=== PATIENT | male | born 1960 | race Caucasian/White ===

== ENCOUNTER 2019-09-24 12:42 | Day surgery (SDC) | payer OTHER ==
[~2019-09-24] VITALS: Ht 177.8 cm; Wt 111.6 kg
[~2019-09-24 12:42] MED LIST: CLARITIN10 MG PO; HYDROCHLOROTHIA25 MG PO; LOSARTAN POTAS100 MG PO; NORCO 5-325 TA1 EACH PO; OMEPRAZOLE20 MG PO; TYLENOL WITH C1 EACH PO
--- NOTE | 2019-09-24 13:49 | NUR ---
09/24/19 1349 Petra Judd 1342- PT ARRIVES TO PACU ALERT AND ORIENTED. PT REPORTS NO PAIN OR NAUSEA. RESP EVEN AND UNLABORED. OXYGEN SAT MID 90'S ON 3L VIA NC 1349- OXYGEN TITRATED OFF.
--- NOTE | 2019-09-25 13:10 | OR ---
[facility] [address] [place], [place] [address] Signed DATE OF OPERATION: 09/24/2019 SURGEON: Malissa Bonds MD PREOPERATIVE DIAGNOSES: 1. Chronic reflux esophagitis. 2. 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 POSTOPERATIVE DIAGNOSIS: Mild chronic esophagitis. No clear evidence of Donouhe esophagus. PROCEDURE: Esophagogastroduodenoscopy with biopsy. ANESTHESIA: Intravenous sedation, fentanyl 100 mcg, Versed 4 mg. INDICATION: This 59-year-old white man is a patient of Dr. Luna and known to me from the past. He has longstanding gastroesophageal reflux for which he is well managed from a symptom standpoint with PPI medication and Prilosec. He underwent upper endoscopy 4 years ago in 2014 confirming Donohue esophagus without dysplasia. He is not having dysphagia or other symptoms at this time. If he stays on his PPI medication, he has no abdominal or substernal pain. Currently, he is taking Prilosec. He was admitted at this time to undergo surveillance upper endoscopy on the basis of his presumed Donohue esophagus. He understands the risks of bleeding, infection, and perforation, and wished to proceed. FINDINGS: He did not have obvious Donohue esophagus on evaluation. The Z-line was well demonstrated. He did have mild chronic esophagitis, certainly no stricture, but I did not appreciate Donohue epithelium after all. He does have a poor flap valve consistent with hiatal hernia. There was minimal antral gastritis. The duodenum was normal. CLOtest was -15 minutes post procedure. DESCRIPTION OF PROCEDURE: The patient was brought to the endoscopy suite and placed in lateral decubitus position after undergoing topical Hurricaine spray hypopharyngeal anesthesia. He was given intravenous sedation to the point of slurred speech and nystagmus. An Olympus video upper endoscope was passed in the hypopharynx after bite block was placed. Vocal cords appeared normal as did the arytenoid processes. Scope was advanced to the esophagus Electronically Signed By: MALISSA BONDS MD 09/25/19 1310 PATIENT NAME: YULY JOSEPH OPERATIVE REPORT DATE OF : 60 REPORT #: [id number] PHYSICIAN: MALISSA BONDS MD PCP: ROBIN LUNA DO REPORT IS CONFIDENTIAL AND NOT TO BE RELEASED WITHOUT AUTHORIZATION [facility] [address] [place], [place] [address] Signed throughout without problem and throughout its length, it looked quite good overall. Distal portion showed no evidence of Donohue epithelium in only mild esophagitis. The scope was advanced to the stomach, which was insufflated with air. Rugal folds were normal as was the antrum. Scope was passed through the pylorus into the duodenum. Duodenum appeared normal. Biopsies were obtained there. Scope was withdrawn and biopsies taken of the pre-pyloric antrum as there was mild inflammation on close inspection. There is certainly no ulcer. Retroflexed view was undertaken showing a poor flap valve consistent with small hiatal hernia. Scope was withdrawn to the distal esophagus and biopsies taken there and in the mid esophagus and more proximally as well. The scope was removed and the patient was taken to recovery room in good condition. CONCLUDING DIAGNOSIS: Poor flap valve with clinical reflux symptoms. No clear evidence of Donohue esophagus. PLAN: Recommend continued use of PPI medication. We discussed previously the risks and benefits of PPI medication, but in his case, it provides superior symptom control of his reflux and based on endoscopic evaluation and mucosal healing. MD JOYA Castro/JUANCHOL /[id number] cc: Robin Luna DO Copies: ROBIN LUNA DO ~ Electronically Signed By: MALISSA BONDS MD 09/25/19 1310 PATIENT NAME: YULY JOSEPH OPERATIVE REPORT DATE OF : 60 REPORT #: [id number] PHYSICIAN: MALISSA BONDS MD PCP: ROBIN LUNA DO REPORT IS CONFIDENTIAL AND NOT TO BE RELEASED WITHOUT AUTHORIZATION
--- NOTE | 2019-09-28 12:33 | PATH ---
[facility] [address] [place], [place] [address] Signed SPECIMEN(S): A DUODENUM NOS SPECIMEN(S): B ANTRUM/PYLORUS SPECIMEN(S): C LOWER ESOPHAGUS SPECIMEN(S): D MIDDLE ESOPHAGUS SPECIMEN SOURCE: A. DUODENUM NOS B. ANTRUM/PYLORUS C. LOWER ESOPHAGUS D. MIDDLE ESOPHAGUS CLINICAL HISTORY: Pre: GERD, Donohue's esophagus. Post: Hiatal hernia, mild esophagitis. MICROSCOPIC DESCRIPTION: Histologic sections of all submitted blocks are examined by light microscopy. These findings, together with the gross examination, support the pathologic diagnosis. FINAL PATHOLOGIC DIAGNOSIS: A. Duodenum, biopsy: - Duodenal mucosa with no histopathologic abnormality. - Normal villous architecture present. - Negative for dysplasia or malignancy. B. Stomach, antrum, biopsy: - Antral and oxyntic mucosa with no histopathologic abnormality. - No Helicobacter organisms identified on HE stain. - Negative for dysplasia or malignancy. C. Esophagus, lower, biopsy: - Squamous mucosa with no histopathologic abnormality. - Few fragments of surface gastric foveolar glands with no histopathologic abnormality. - Negative for intestinal metaplasia, dysplasia, or malignancy. D. Esophagus, middle, biopsy: - Squamous mucosa with no histopathologic abnormality. - Negative for intestinal metaplasia, dysplasia, or malignancy. NAL:cml:C2NR GROSS DESCRIPTION: A. The specimen is received in formalin filled specimen container labeled "MP, #1". Two butcher biopsies are 0.2 and 0.3 cm and entirely submitted in cassette A1. PATIENT NAME: YULY JOSEPH PATHOLOGY DATE OF : 60 REPORT #: [id number] PHYSICIAN: TIBURCIO DICKEY PCP: FRANCIS LUNA DO REPORT IS CONFIDENTIAL AND NOT TO BE RELEASED WITHOUT AUTHORIZATION [facility] [address] [place], [place] [address] Signed B. The specimen is received in a formalin filled specimen container labeled "MP, #2". Two butcher biopsies are 0.2 and 0.4 cm and entirely submitted in cassette B1. C. The specimen is received in a formalin filled specimen container labeled "MP, #3". Two jeff biopsies are 0.3 and 0.5 cm, marked with eosin and entirely submitted in cassette C1. D. The specimen is received in a formalin filled specimen container labeled "MP, #4". Two jeff biopsies are 0.1 and 0.4 cm, marked with eosin and entirely submitted in cassette D1. GW (under the direct supervision of a pathologist) The Gross Description was prepared using a voice recognition system. The report was reviewed for accuracy; however, sound-alike word errors, addition and/or deletions may occur. If there is any question about this report, please contact Client Services. PERFORMING LABORATORY: The technical component was performed by [facility], [address] [place] [address] (Roving Marker: Lyndsay Corona MD; CLIA# [id number]). [facility], [address] [address] (Roving Marker: Favio Mckeon MD; CLIA# [id number]). Diagnostician: Ina Robles MD Pathologist Electronically Signed 09/28/2019 Copies: ~ PATIENT NAME: YULY JOSEPH PATHOLOGY DATE OF : 60 REPORT #: [id number] PHYSICIAN: TIBURCIO DICKEY PCP: FRANCIS LUNA DO REPORT IS CONFIDENTIAL AND NOT TO BE RELEASED WITHOUT AUTHORIZATION
== END 2019-09-24 14:30 | disposition home or self-care (01) ==
LOC: OPS 12:42 → DS 12:42 → OPS 14:00
PROVIDERS: Surgery
PROC: 0DB78ZX Excision of Stomach, Pylorus, Via Natural or Artificial Opening Endoscopic, Diagnostic (ICD-10-PCS; 2019-09-24)
PROC: 0DB38ZX Excision of Lower Esophagus, Via Natural or Artificial Opening Endoscopic, Diagnostic (ICD-10-PCS; 2019-09-24)
PROC: 0DB28ZX Excision of Middle Esophagus, Via Natural or Artificial Opening Endoscopic, Diagnostic (ICD-10-PCS; 2019-09-24)
PROC: 0DB98ZX Excision of Duodenum, Via Natural or Artificial Opening Endoscopic, Diagnostic (ICD-10-PCS; principal; 2019-09-24 14:00)
DX: K21.0 Gastro-esophageal reflux disease with esophagitis (principal); K29.70 Gastritis, unspecified, without bleeding; I10 Essential (primary) hypertension; E66.01 Morbid (severe) obesity due to excess calories; G47.33 Obstructive sleep apnea (adult) (pediatric); Z68.37 Body mass index [BMI] 37.0-37.9, adult; Z88.5 Allergy status to narcotic agent; Z99.89 Dependence on other enabling machines and devices; Z98.890 Other specified postprocedural states
CPT/HCPCS: G0500; J2250; J3010; J7121

== ENCOUNTER 2023-11-14 13:05 | Day surgery (SDC) | payer OTHER ==
[~2023-11-14] VITALS: Ht 177.8 cm; Wt 111.5 kg
[~2023-11-14 13:05] MED LIST changes: +ACETAMINOPHEN-1 EAC1 PO; +SILDENAFIL20 MG PO
[2023-11-14 13:24] VITALS: BP 151/85
[2023-11-14] MEDS ORDERED: LATANOPROST2.5 ML OPTH (13:30)
--- NOTE | 2023-11-14 15:46 | NUR ---
11/14/23 1546 Sheets,Fide 1537 PT ARRIVED TO PACU ON 3L VIA MASK, PT ASLEEP AND WAKES EASILY. PT ENCOURAGED TO ROLL TO LEFT SIDE AND PASS GAS NEEDED. PLAN OF CARE DISCUSSED AND PT ROLLED TO LEFT SIDE AND EASILY FALLS BACK TO SLEEP. SMALL AMOUNT OF SNORING NOTED.
[2023-11-14 16:19] VITALS: BP 127/90
--- NOTE | 2023-11-15 18:06 | OR ---
[facility] [address] [place], [place] [address] Signed DATE OF OPERATION: 11/14/2023 SURGEON: Malissa Bonds MD PREOPERATIVE DIAGNOSES: 1. History of Donohue esophagus and ongoing reflux (on PPI). 2. Colon screening. POSTOPERATIVE DIAGNOSES: 1. Hiatal hernia with Donohue esophagus (minimal). 2. Diverticular change of sigmoid and polyps x3. PROCEDURES: 1. Esophagogastroduodenoscopy with biopsy. 2. Total colonoscopy to cecum with cold morcellation polypectomy x3. ANESTHESIA: Intravenous sedation fentanyl 150 mcg and Versed 6 mg total. INDICATIONS FOR THE PROCEDURE: This 63-year-old white man is a patient of FERCHO Rose. He underwent colonoscopy in 2014 at which time he was noted to have diverticulosis. He has had no bleeding, diarrhea or constipation. He has no known family history of colon cancer though he is adopted and his assessment of family risk is unreliable. He additionally has a prior history of Donohue esophagus with reflux for which he takes omeprazole 20 mg daily. He has no associated dysphagia, hematemesis, or other abnormality. He is admitted at this time to undergo colonoscopy and upper endoscopy. He understands the risk of bleeding, infection, and perforation. FINDINGS: Upper endoscopy showed a hiatal hernia and small islands of mucosa suggestive of Donohue epithelium. There was no sign of neoplasm or stricture. CLOtest was negative 30 minutes post procedure. On colonoscopy, the prep was good. There were three small polyps, two in the left colon, one in the sigmoid, all excised with cold morcellation technique. PROCEDURE IN DETAIL: The patient was brought to the endoscopy suite and placed in lateral decubitus position. He was given intravenous sedation to the point of slurred speech and nystagmus with Electronically Signed By: MALISSA BONDS MD 11/15/23 5174 PATIENT NAME: YULY JOSEPH OPERATIVE REPORT DATE OF : 60 REPORT #: [id number] PHYSICIAN: MALISSA BONDS MD PCP: SUZIE CARMONA NP REPORT IS CONFIDENTIAL AND NOT TO BE RELEASED WITHOUT AUTHORIZATION [facility] [address] [place], [place] [address] Signed fentanyl and Versed. A bite block was placed. Full cardiopulmonary monitoring was maintained. An Olympus video upper endoscope was passed in the hypopharynx. The vocal cords appeared normal. Scope was advanced to the esophagus throughout its length appeared normal except the distal portion where there were few islands of ectopic mucosa consistent with Donohue epithelium. Scope was advanced to the stomach which was insufflated with air. Rugal folds were normal. Motility was normal. Pylorus was normal. Scope was passed through it into the duodenum, which appeared normal. Biopsies were taken of the duodenal bulb. The scope was withdrawn. Biopsies taken of the antrum for both ROSEMARY and pathologic testing. Retroflexed view was undertaken showing a poor flap consistent with hiatal hernia. Scope was straightened, withdrawn to the distal esophagus where biopsies were obtained. The herbicide service sales representative areas of the islands suggestive of Donohue epithelium. Further withdrawal allowed for biopsies of the midesophagus, though it appeared normal otherwise. There were no other findings in the more proximal esophagus or vocal cord. Plan was then made for colonoscopy. Additional sedation was given. An Olympus video colonoscope was passed in the rectum and manipulated throughout the colon noting diverticular change of the sigmoid and left colon. Scope was ultimately passed to the cecum. Ileocecal valve and appendiceal orifice were normal. Scope was withdrawn from that point and examination showed no sign of abnormality until the left colon about 50 cm where two small polyps were noted. They were quite small and though they may represent adenoma, could easily be hyperplastic. Both were excised with cold morcellation technique. Further withdrawal showed another similar such lesion at the distal sigmoid, which was excised as well. Withdrawal of the rectum allowed for retroflexed view, which was normal. Scope was straightened, withdrawn and removed. The patient was taken to the recovery room in good condition. CONCLUDING DIAGNOSES: 1. Hiatal hernia with minimal Donohue epithelium. 2. Scattered diverticula with three small polyps. PLAN: Recommend repeat upper endoscopy in 3 to 5 years and repeat colonoscopy as well. He will return to the ongoing care of FERCHO Rose. Malissa Bonds MD Electronically Signed By: MALISSA BONDS MD 11/15/23 1806 PATIENT NAME: YULY JOSEPH OPERATIVE REPORT DATE OF : 60 REPORT #: [id number] PHYSICIAN: MALISSA BONDS MD PCP: SUZIE CARMONA NP REPORT IS CONFIDENTIAL AND NOT TO BE RELEASED WITHOUT AUTHORIZATION [facility] [address] [place] [id number] Signed /JUANCHOL /[id number] cc: FERCHO Rose Copies: ~ Electronically Signed By: MALISSA BONDS MD 11/15/23 1806 PATIENT NAME: YULY JOSEPH OPERATIVE REPORT DATE OF : 60 REPORT #: [id number] PHYSICIAN: MALISSA BONDS MD PCP: SUZIE CARMONA NP REPORT IS CONFIDENTIAL AND NOT TO BE RELEASED WITHOUT AUTHORIZATION
--- NOTE | 2023-11-20 16:03 | PATH ---
[facility] [address] [facility] [place] [address] Signed SPECIMEN(S): A DUODENAL BIOPSY SPECIMEN(S): B ANTRUM/PYLORUS BIOPSY SPECIMEN(S): C LOWER ESOPHAGEAL BIOPSY SPECIMEN(S): D MIDDLE ESOPHAGEAL BIOPSY SPECIMEN(S): E DESCENDING/LEFT COLON POLYPS SPECIMEN(S): F SIGMOID POLYP SPECIMEN SOURCE: A. DUODENAL BIOPSY B. ANTRUM/PYLORUS BIOPSY C. LOWER ESOPHAGEAL BIOPSY D. MIDDLE ESOPHAGEAL BIOPSY E. DESCENDING/LEFT COLON POLYPS F. SIGMOID POLYP CLINICAL HISTORY: EGD / Colonoscopy with possible biopsies. Polyps. Donohue's esophagus, reflux, screening colonoscopy. FINAL PATHOLOGIC DIAGNOSIS: A. Duodenal biopsy: - Benign duodenal mucosa, negative for specific diagnostic abnormality. B. Antrum/pylorus, biopsy: - Benign gastric-type mucosa with focal slight chronic inflammation. - Negative for evidence of Helicobacter organisms on routine HE-stained sections. C. Lower esophageal biopsy: - Benign esophageal and scant glandular epithelium. - Negative for specialized intestinal metaplasia in the scant glandular epithelium. - Negative for increased epithelial eosinophils within the esophageal epithelium. D. Middle esophageal biopsy: - Benign esophageal epithelium, negative for increased epithelial eosinophils. E. Descending/left colon polyps: - Tubular adenoma (three fragments). F. Sigmoid polyp: - Polypoid fragment of benign colonic mucosa with an incidental submucosal lymphoid aggregate with reactive histologic features. JVR:sjc PATIENT NAME: YULY JOSEPH PATHOLOGY DATE OF : 60 REPORT #: [id number] PHYSICIAN: [facility] PATHOLOGY PCP: SUZIE CARMONA NP REPORT IS CONFIDENTIAL AND NOT TO BE RELEASED WITHOUT AUTHORIZATION [facility] [address] [place], [place] [address] Signed MICROSCOPIC EXAMINATION: Histologic sections of all submitted blocks are examined by light microscopy. These findings, together with the gross examination, support the pathologic diagnosis. GROSS DESCRIPTION: A. The specimen, labeled and designated "Pankratz, M, " and designated on the requisition "duodenum (NOS) biopsy," is received in formalin and consists of one butcher, soft tissue fragment measuring 0.4 cm. The specimen is submitted entirely in (A1). B. The specimen, labeled and designated "Pankratz, M, " and designated on the requisition "stomach, antrum/pylorus biopsy," is received in formalin and consists of three butcher, soft tissue fragments measuring 0.1 to 0.5 cm. All specimens are submitted entirely in (B1). C. The specimen, labeled and designated "Pankratz, M, " and designated on the requisition "lower esophagus biopsy," is received in formalin and consists of four butcher-white, soft tissue fragments measuring 0.3 to 0.5 cm. All specimens are submitted entirely in (C1). D. The specimen, labeled and designated "Pankratz, M, " and designated on the requisition "middle esophagus biopsy," is received in formalin and consists of two butcher-white, soft tissue fragments measuring 0.3 to 0.6 cm. Both specimens are submitted entirely in (D1). E. The specimen, labeled and designated "Pankratz, M, " and designated on the requisition "colon, descending/left polypectomy x 2," is received in formalin and consists of three butcher, soft tissue fragments measuring 0.3 to 0.5 cm. All specimens are submitted entirely in (E1). F. The specimen, labeled and designated "Angely Joseph, " and designated on the requisition "colon, sigmoid polypectomy," is received in formalin and consists of one butcher, soft tissue fragment measuring 0.4 cm. The specimen is submitted entirely in (F1). MMA (under the direct supervision of a pathologist) The Gross Description was prepared using a voice recognition system. The report was reviewed for accuracy; however, sound-alike word errors, addition and/or deletions may occur. If there is any question about this report, please contact Client Services. ADDITIONAL NOTES: Immunohistochemical and/or in situ hybridization studies if performed in this case included appropriate positive controls that reacted as expected. This test was developed and its performance PATIENT NAME: YULY JOSEPH PATHOLOGY DATE OF : 60 REPORT #: [id number] PHYSICIAN: TIBURCIO DICKEY PCP: SUZIE CARMONA NP REPORT IS CONFIDENTIAL AND NOT TO BE RELEASED WITHOUT AUTHORIZATION [address] [address] Signed characteristics determined by [facility]. It has not been cleared or approved by the U.S. Food and Drug Administration. The FDA has determined that such clearance or approval is not necessary. This test is used for clinical purposes. It should not be regarded as investigational or for research. [facility] is certified under the Clinical Laboratory Improvement Amendments of 1988 (CLIA) as qualified to perform high complexity clinical laboratory testing. PERFORMING LABORATORY: Technical component was performed by [facility], [address] [place] [id number] (CLIA# [id number]). Professional interpretation was performed by [facility], [address] [place] [id number] (CLIA#: [id number]). Diagnostician: Reynold Mccauley MD Pathologist Electronically Signed 11/20/2023 Copies: ~ PATIENT NAME: YULY JOSEPH PATHOLOGY DATE OF : 60 REPORT #: [id number] PHYSICIAN: [facility] [employer] [facility]OLOGY PCP: SUZIE CARMONA NP REPORT IS CONFIDENTIAL AND NOT TO BE RELEASED WITHOUT AUTHORIZATION
== END 2023-11-14 16:28 | disposition home or self-care (01) ==
LOC: OPS 13:05 → DS 13:45 → OPS 13:45
PROVIDERS: ATTEND Surgery
PROC: 0DB58ZX Excision of Esophagus, Via Natural or Artificial Opening Endoscopic, Diagnostic (ICD-10-PCS; 2023-11-14)
PROC: 0DBM8ZX Excision of Descending Colon, Via Natural or Artificial Opening Endoscopic, Diagnostic (ICD-10-PCS; 2023-11-14)
PROC: 0DBN8ZX Excision of Sigmoid Colon, Via Natural or Artificial Opening Endoscopic, Diagnostic (ICD-10-PCS; 2023-11-14)
PROC: 0DB98ZX Excision of Duodenum, Via Natural or Artificial Opening Endoscopic, Diagnostic (ICD-10-PCS; principal; 2023-11-14 13:45)
PROC: 0DB68ZX Excision of Stomach, Via Natural or Artificial Opening Endoscopic, Diagnostic (ICD-10-PCS; 2023-11-14 13:45)
DX: Z12.11 Encounter for screening for malignant neoplasm of colon (principal); D12.4 Benign neoplasm of descending colon; K63.5 Polyp of colon; K57.30 Diverticulosis of large intestine without perforation or abscess without bleeding; K29.50 Unspecified chronic gastritis without bleeding; K44.9 Diaphragmatic hernia without obstruction or gangrene; K22.70 Barrett's esophagus without dysplasia; I10 Essential (primary) hypertension; K21.9 Gastro-esophageal reflux disease without esophagitis; G47.30 Sleep apnea, unspecified; Z88.1 Allergy status to other antibiotic agents; Z79.899 Other long term (current) drug therapy
CPT/HCPCS: 99153; G0500; J0690; J2250; J3010